=== PATIENT | female | born 1950 | race Caucasian/White ===

== ENCOUNTER 2021-09-30 11:49 | Outpatient (RCR) | payer MEDICARE, SELFPAY ==
--- OUTSIDE RECORDS SUMMARY | 2021-09-25 09:15 | XMS_ITS | Continuity of Care Document ---
:1950 Author Care Team Providers Name Role Phone MEAGAN ARELLANO Primary Care Physician MD Diallo Mayorga Attending Physician Chief Complaint and Reason for Visit Chief Complaint 03/12/21,Right Total Hip, Mue [facility] Reason for Visit Abdominal pain cramping Allergies, Adverse Reactions, Alerts Allergen Type Severity Reaction Last Verified Status Updated Lisinopril Allergy Unknown September 02, Yes Active 2021 Latex Allergy Severe SEVERE FACE September 02, Yes Active SWELLING 2021 Social History Smoking Status Status Start Date End Date Date of Observat ion Ex-smoker (finding) September 02 10:44am Observation Status Observation Response Date of Response History provided by Patient February 24, 2021 8:37am Where do you live? Own home/apt February 24, 2021 8:37am With whom do you live? Alone February 24 8:37am Comment on who patient lives just 3 weeks Novem jessy 2020 8:37am with ago Specify additional assistance family will stay with her Jevon mber 2020 8:37am needed as needed Additional Data Assigned Sex Female Problems Active Problems Medical Problem Onset Date Status Osteoarthros Nos-Pelvis February 01, 2011 Active Status post right hip replacement Active Medications Medication Status Dose Units Route Directions Qty Days Start End Ins tructions Date Date Acetaminophe Active 500-10 MG PO Every 6 100 Decembe n 00 Hours as r 10th, (Acetaminoph needed 2020 en Extra 11:49am Stren) 500 Mg TAB Albuterol Active 2 PUFF INH Every 4 1 Sulfate Hours as (Proair Hfa) needed for 90 Mcg/Puff Wheezing/Di INH fficult Breathing Albuterol/Ip Active 3 MG INH Every 6 ratropium Hours as (Duoneb) 3 needed Mg/0.5 Mg NEB Amoxicillin Active 2000 MG PO Once 4 August 1 HR WA IOR TO , DENTAL APPT 2021 10:36am Aspirin Active 1000 MG PO Daily as (Rajani needed Aspirin Extra Stren) 500 Mg TAB Beclomethaso Active 2 PUFF INH Twice A Day ne Dipropionate Hf (Qvar Redihaler) 40 Mcg/Act AER Carbamazepin Active 200 MG PO Daily e (Carbatrol) 200 Mg CAP Cetirizine Active 10 MG PO Daily Hcl Clonazepam Active 0.5 MG PO Bedtime Hctz/Losarta Active 1 TAB PO Daily 30 n Potassium (Hyzaar) 12.5 Mg/50 Mg TAB Hydroxyurea Active 500 MG PO Three Times A Day Ipratropium Active 2 PUFF INH Twice A Day [place] (Atrovent Hfa) 17 Mcg AER Metronidazol Active 1 DEO TOP Twice A Day e as needed (Metronidazo le Gel) 0.75 % GEL Simvastatin Active 20 MG PO Bedtime 30 Acetaminophe Disconti 1 TABLET PO Q4-6H Prn 60 November em FOR VICODIN n/Hydrocodon nued , 7.5/750 e Bitart 2006, (Vicodin 8:05am 2010 7.5/750) 7.5 1:43pm Mg/750 Mg TAB Albuterol Disconti 2 PUFF INH Q4h Prn 10 July (Ventolin nued , Hfa) 90 Mcg 2014 DOSE 9:16am Albuterol/Ip Disconti 2 PUFF INH Four Times January ch ratropium nued Daily , , (Combivent) 2010 2015 14.7 Gm AERO 12:46pm 1:29pm Amoxicillin Disconti 4 TABS PO Once 4 Decejune 4 t abs by [place] sethi , , mouth 1 hour 2010 2015 prior to 10:05am 1:29pm dental appointment Ascorbic Disconti 500 MG PO Daily June Acid nued , (Vitamin C) 2019 500 Mg TAB 2:24pm Aspirin Disconti 81 MG PO Twice A Day 60 30 Decembe Januar [place] r , y 2020, 11:49am 2021 9:24am Aspirin Disconti 81 MG PO Daily Februa (Baby nued ry Aspirin) 81 10th, Mg CHW 2020 11:14a m Beclomethaso Disconti 2 PUFF INH Twice A Day 1 Dece mb ne nued er Dipropionate 3rd, (Qvar) 80 2020 Mcg AER 2:43pm Cephalexin Disconti 2 GRAMS PO Once 4 June 4 tabs (2 nued 25th, 3rd, grams) by 2012 2019 mouth 1 hour 9:37am 2:24pm prior to dental appointment. Cephalexin Disconti 2 GRAMS PO Once 4 June nued er , 2017 2:06pm 8:39am Cephalexin Disconti 2 GRAMS PO Once 4 June 05 ta bs (2 nued er 1st, 22nd, grams) by 2015 2016 mouth 1 hour 3:33pm 3:39pm prior to dental appointment. Cephalexin Disconti 2 GRAMS PO Once 4 SeptemberJune 05 tabs (2 nued 23rd, 9th, grams) by 2013 2015 mouth 1 hour 4:16pm 1:29pm prior to dental appointment. Cephalexin Disconti 2 GRAMS PO Once 4 July 4 tabs (2 nued 3rd, 9th, grams) by 2014 2015 mouth 1 hour 3:25pm 1:29pm prior to dental appointment. Cephalexin Disconti 2 GRAMS PO Once 4 June 4 ta bs (2 nued er 9th, grams) by 2015 mouth 1 hour 2014 1:29pm prior to 3:14pm dental appointment. Cephalexin Disconti 2 GRAMS PO Once 4 June 05 ta bs (2 nued er 25th, grams) by 2012 mouth 1 hour 2011 9:37am prior to 2:56pm dental appointment. Cholecalcife Disconti 400 UNIT PO Daily June (Vitamin nued 3rd, D) 1,000 2019 Unit TAB 2:24pm Clonazepam Disconti 0.25 MG PO Daily September 9:26am Covid-19 Disconti 30 MCG IM Once 1 Decem (Sars-Cov-2) nued er 7th, jessy Mrna Vir 2020 7th, (Pfizer-Bion 3:25pm 2020 tech 3:28pm Covid-19) 30 Mcg/0.3 Ml INJ Ergocalcifer Disconti 87135 UNIT PO 09 June hany hly ol (Vitamin nued 9th, D) 50,000 2015 Unit CAP 1:29pm Ergocalcifer Disconti 46056 UNIT PO Once Weekly be ol (Vitamin nued r D) 50,000 , Unit CAP 2012 1:21pm Fluticasone Disconti 2 PUFF INH Twice A Day 1 Febrjun ch use with Propionate nued y 6th, , aerocham jessy (Flovent 2011 2016 as directed . Hfa) 110 Mcg 10:06am 3:40pm rins e mouth AER after use. Hydrocodone- Disconti 1 - 2 TAB PO Q4-6H Prn 60 January Acetaminophe nued , , n (Co-Gesic) 2010 2012 5 Mg/500 Mg 3:10pm 9:26am TAB Hydroxyurea Disconti 500 MG PO As Directed October b Take 3 capsules oral tuesday through tuesday; 2 capsules (Hydrea) 500 nued 6th, er SAT/TUE DAY. Mg CAP 2020 06, 11:12am 2020 2:43pm Hydroxyurea Disconti 500 MG PO As Directed Oct Take 3 (Hydrea) 500 nued y 10th, 6th, capsu les oral Mg CAP 2020 2020 daily. 11:33am 11:12a m Hydroxyurea Disconti 500 MG PO As Directed January alesia Take 3 (Hydrea) 500 nued 6th, ry capsule s Mon Mg CAP 2020 01, through Tue; 1:03pm 2020 AND 4 cap 11:33a sat/tuesday. m Hydroxyurea Disconti 500 MG PO As Directed June e Take 3 (Hydrea) 500 nued 3rd, r 6th, capsul es Mon Mg CAP 2019 2019 through Tue; 2:44pm 1:03pm AND 2 cap sat/tim. Hydroxyurea Disconti 500 MG PO Daily June 2 TAB S DAILY (Hydrea) 500 nued 3rd, Mg CAP 2019 2:44pm Hydroxyurea Disconti 500 MG PO Februa one tab (Hydrea) 500 nued ry TThSaSu and Mg CAP 6th, two tabs MWF 2017 10:06a m Hydroxyurea Disconti 500 MG PO Octobe (Hydrea) 500 nued r Mg CAP 2013 1:53pm Hydroxyurea Disconti 1000 MG PO As Directed Octob e (Hydrea) 500 nued r Mg CAP 2013 9:30am Losartan Disconti 50 MG PO Daily Octobe Potassium nued r 2010 9:26am Lyrica Disconti Octobe nued r 2010 9:26am Magnesium Disconti 250 MG PO Daily 100 June Oxide nued 2019 2:24pm Multiple Disconti 1 TAB PO As Needed Dece Vitamins W/ nued er Minerals , (Centrum 2020 Silver 2:43pm 50+Women) 1 Tab TAB Nicotine Disconti 21 MG TD Once November (Nicotine nued , jessy Transdermal 2006, ) 8:05am 2011 Mg/24 H DIS 1:43pm Oxycodone Disconti 2.5-5 MG PO Every 4-6 42 Decembe Aprua Minimize. Hcl nued Hours as r 10th, y Discontin ue needed 2020, as soon as 11:49am 2021 possible 9:24am Prednisone Disconti 0 PO Daily September take 3 tabs po daily days 1-2; then 2 tabs po daily days 3 - 5; then nued y , , 1 tab po michael y days 6 - 8. 2011 2012 10:06am 9:26am Pregabalin Disconti 100 MG PO Three Times September (Lyrica) 100 nued A Day , Mg CAP 2012 9:26am Probiotic Disconti 1 PO As Needed June Product nued , (Probiotic) 2019 TAB 2:24pm Rivaroxaban Disconti 10 MG PO Daily 4 4 Decembe Apruar Fo r DVT prophylaxis. Take this medication daily for 4 (Xarelto) 10 nued r 10th, y days, then aspirin 81 mg twice daily for 30 days. Mg TAB 2020, 11:49am 2021 9:24am Sennosides Disconti 2 TAB PO Twice A Day 100 Decembe Zurdo ar (Senna-Lax) nued as needed r 10th, y 8.6 Mg TAB 2020, 11:49am 2021 9:24am Warfarin Disconti 6 MG PO Daily January Sodium nued 2010 3:10pm 9:26am Immunizations Immunization Event Date Not Given Dose Rn Employee Health Lot Vac cine Reason Number Number Informatio n Statement (VIS) Deta il COVID-19 Pfizer May 05 PFIZER-BIO [id number] 2020 COVID-19 Pfizer June 10, PFIZER-BIONTECH [id number] 2020 COVID- Pfizer December 05 PFIZER-BIO [id number] 2020 Herpes Zoster October 30, 2009 Influenza February 09, 2002 Influenza January 28, 2 2004 Influenza January 12, 2005 Influenza January 24, 2006 Influenza February 04, 2007 Influenza March 09, 2008 Influenza January 22, 2009 Influenza January 20, 2010 Influenza February 10, 2011 Influenza January 28, 2012 Influenza January 022013 Influenza February 13, 2014 Influenza February 14, 2015 Influenza January 17, 2016 Influenza January 13, 2017 Influenza February 022018 Prevnar Adult February 02, 2013 Pneumovax Adult March 04, 2014 Shingrix August 30, 2018 Shingrix May [id number] Tetanus/Diptheri April 20, 1 a 2005 Tdap May 05 (adolescent/adul 2010 t) Tdap March 05 [id number] (adolescent/adul 2020 t) Medical Equipment Device Date Implanted Device Details PINNACLE GRIPTION March 13, 2021 SIMBA: [id number] Issuing Agency: [facility] Device Id: [id number] Expiration Date: 04-11-30 Lot Number: [id number] PINNACLE ALTRX March 13, 2021 SIMBA: [id number] Issuing Agency: [facility] Device Id: [id number] Expiration Date: 09-10-29 Lot Number: [id number] [id number] March 13, 2021 SIMBA: [id number] Issuing Agency: [facility] Device Id: [id number] Expiration Date: 04-12-29 Lot Number: [id number] BIOLOX DELTA March 13, 2021 SIMBA: [id number] Issuing Agency: [facility] Device Id: [id number] Expiration Date: 09-09-30 Lot Number: [id number] March 13, 2021 SIMBA: [id number] Issuing Agency: [facility] Device Id: [id number] Expiration Date: 04-13-30 Lot Number: [id number] Procedures Procedure Date Performed Status X-ray of right hip, single September 02, 2021 completed view Relevant Diagnostic Tests and/or Laboratory Data Laboratory Results Test Date/Time Result Interpretation Reference Result Comment Performing Range Site White Blood September 15, 2.50 5.00-10.00 [facility] Count 2021 [address] [facility] 10:25am [place] [address] Red Blood Count September 15, 1.55 3.90-5.03 [facility] 2021 [address] [facility] 10:25am [facility] [address] Hemoglobin September 15, 7.1 12.0-15.5 [facility] 2021 [address] [facility] 10:25am [place] [address] Hematocrit September 15, 20.7 34.9-44.5 [facility] 2021 [address] [facility] 10:25am [place] [address] Mean September 15, 134 82-98 [facility] Corpuscular 2021 [address] [facility] Volume 10:25am [place] [address] Mean September 15, 46 27-34 [facility] Corpuscular 2021 [address] [facility] Hemoglobin 10:25am [place] [address] Mean September 15, 34 32-36 [facility] Corpuscular 2021 [address] [facility] Hemoglobin 10:25am [place] [address] Concent Platelet Count September 15, 131 150-450 [facility] 2021 [address] [facility] 10:25am [place] [address] RDW Coefficient September 15, 14.2 11.5-15.3 [facility] of Variation 2021 [address] [facility] 10:25am [place] [address] Neutrophils (%) September 15, 44.8 50.0-70.0 [facility] (Auto) 2021 [address] [facility] 10:25am [place] [address] Lymphocytes (%) September 15, 47.2 25.0-45.0 [facility] (Auto) 2021 [address] [facility] 10:25am [place] [address] Monocytes (%) September 15, 5.6 0.00-11.0 [facility] (Auto) 2021 [address] [facility] 10:25am [place] [address] Eosinophils (%) September 15, 1.6 0.0-7.0 [facility] (Auto) 2021 [address] [facility] 10:25am [place] [address] Basophils (%) September 15, 0.8 0.0-3.0 [facility] (Auto) 2021 [address] [facility] 10:25am [place] [address] Immature September 15, 0.0 [facility] Granulocyte % 2021 [address] [facility] (Auto) 10:25am [facility] [address] RDW Coefficient December 11.9 11.5-15.3 [facility] of Variation 2020 [facility] 12:22pm [facility] [address] Neutrophils # September 15, 1.12 1.70-7.00 [facility] (Auto) 2021 [address] [facility] 10:25am [facility] [address] Lymphocytes # September 15, 1.18 0.90-2.90 [facility] (Auto) 2021 [address] [facility] 10:25am [facility] [address] Monocytes # September 15, 0.14 0.30-0.90 [facility] (Auto) 2021 [address] [facility] 10:25am [facility] [address] Eosinophils # September 15, 0.04 0.00-0.50 [facility] (Auto) 2021 [address] [facility] 10:25am [facility] [address] Basophils # September 15, 0.02 0.00-0.20 [facility] (Auto) 2021 [address] [facility] 10:25am [place] [address] Immature September 15, 0.00 [facility] Granulocyte # 2021 [address] [facility] (Auto) 10:25am [facility] [address] Random Glucose September 15, 99 60-115 [facility] 2021 [address] [facility] 10:25am [facility] [address] Blood Urea September 15 7-30 [facility] Nitrogen 2021 [address] [facility] 10:25am [place] [address] Creatinine September 15, 1.0 0.5-1.5 [facility] 2021 [address] [facility] 10:25am [place] [address] Estimated September 15, Patient [facility] Creatinine 2021 height/weight [address] [facility] Clearance 10:25am [place] [address] available Sodium Level September 15, 136 135-149 [facility] 2021 [address] [facility] 10:25am [place] [address] Potassium Level September 15, 4.5 3.6-5.1 [facility] 2021 [address] [facility] 10:25am [facility] [address] Chloride Level September 15, 99 96-114 [facility] 2021 [address] [facility] 10:25am [facility] [address] Carbon Dioxide September 15, 29 20-32 [facility] Level 2021 [address] [facility] 10:25am [facility] [address] Calcium Level September 15, 8.5 8.4-10.6 [facility] 2021 [address] [facility] 10:25am [facility] [address] Total Protein September 15, 6.7 6.0-8.3 The use of [facility] 2021 Eltrombopag, a [address] [facility] 10:25am bone [place] [address] stimulant used to treat thrombocytopenia and aplastic anemia, interferes with this measurement of total protein. A 5% bias has been observed. Albumin September 15, 3.9 3.3-5.0 [facility] 2021 [address] [facility] 10:25am [facility] [address] Total Bilirubin September 15, 0.2 0.1-1.5 [facility] 2021 [address] [facility] 10:25am [facility] [address] Aspartate Amino September 15 12-35 [facility] Transf 2021 [address] [facility] (AST/SGOT) 10:25am [place] [address] Alanine September 15, 14 4-35 [facility] Aminotransferas 2021 [address] [facility] e (ALT/SGPT) 10:25am [place] [address] Alkaline September 15, 103 40-150 [facility] Phosphatase [address] 10:25am [facility] [address] Lactate September 15, 554 346-767 [facility] Dehydrogenase 2021 [address] [facility] 10:25am [facility] [address] Vital Signs Vital Reading Result Reference Range Collection Date/ Time Height 63 [in_i] September 02, 2021 9 :57am Height 160.02 cm September 02, 2021 9 :57am Weight 199 [lb_av] September 02, 2021 9 :57am Weight 90.410714 kg September 02, 2021 9 :57am Body Temperature 98.3 [degF] September 02, 2021 9:57am Body Temperature 36.83 Estella September 02, 2021 9:57am Body surface area 1.93 m2 September 02, 2021 9:57am BMI (Body Mass Index) 35.3 kg/m2 September 02, 2021 9:57am Advance Directives Advance Directive Response Recorded Date/Time Does Pt have Health Care No September 14, 2012 8:50pm Directive? Has patient completed a No February 24 8:37am Health Care Directive? Insurance Providers Guarantor Maryuri Tello Address [address] [address] Contact Info. Home Phone: Payer Policy Id Coverage Id Subscriber's Subscriber Id Effective E xpiration Name Date Date [facility] [id number] Zimmerman, Medicare Diane C Plans Encounters Encounter Location(s) Arrival/Admit Date Discharge/Depart Date Provider(s) Registered [place] September 16, 2021 Koby Jane [facility] 6:54am Registered Clinics September 02, 2021 Anthony [facility] 10:00am A Office Visit Orthopedic September 02, 2021 Anthony May[facility] 10:00am A [place] Registered [place] September 02, 2021 Anthony Mayorga [facility] 9:42am A Recent Diagnosis Onset Date Status post right hip replacement Functional Status Observation Response Date Recorded Functional Status Independent March 15, 2021 1:18pm Mental Status Observation Response Date Recorded Cognitive Status Alert February 24, 2021 8:27am Oriented February 24, 2021 8:27am Assessments Diagnosis Onset Date Resolution Status Status post right hip replacement Plan of Treatment Instructions from visit on: 09/02/21 Please follow the provider's instructions as discussed during your visit. Future Tests Future scheduled test information is unavailable Pending Tests Pending diagnostic test information is unavailable Future Visits Future appointment information is unavailable Referrals to Other Providers Reason for Referral Start Provider Provider Contact Provider Address Referral Date Information Jerica Arellano Work Phone: [facility] DENG Perez PA-C [address] [place] [address] ON [facility] 5 2026 Future Procedures Future procedure information is unavailable Future Medications Future medication information is unavailable Patient Instructions Acetaminophen (By mouth) Aspirin (By mouth) Oxycodone, Rapid Release (By mouth) Rivaroxaban (By mouth) Senna (By mouth) Total Hip Replacement (DC) Goals Ambulatory Goals Reach or maintain optimal well being.
[2021-09-30 12:24] LABS: Slide Review Reflex No
[2021-09-30 12:27] LABS: Basophils Percent Auto 0.4 % (0.0-3.0); Eosinophils Percent Auto 1.3 % (0.0-7.0); Hematocrit 23.7 % (33.0-51.0); Lymphocytes Percent Auto 38.1 % (20-44); Mean Corpuscular HGB Conc 33 gm/dL (32-36); Mean Corpuscular Hemoglobin 43 pg (26-34); Mean Corpuscular Volume 130 fL (80-100); Monocytes Percent Auto 8.7 % (0.0-11.0); Neutrophils Percent Auto 51.5 % (42.0-72.0); Platelet Count* 453 K/uL (140-440); RDW Coefficient of Variation % 19.7 % (11.5-15.5); Red Blood Count 1.82 m/uL (4.00-5.20); White Blood Count* 2.31 K/uL (4.50-11.00)
[2021-09-30 13:07] LABS: Hemoglobin* 7.8 gm/dL (12.0-16.0)
== END 2021-10-01 23:59 | disposition home or self-care (01) ==
LOC: CCIC 11:49
PROVIDERS: PCP Physician Assistant Medical; Visit Provider Internal Medicine Hematology & Oncology
DX: D47.3 Essential (hemorrhagic) thrombocythemia (principal)
CPT/HCPCS: 36415; 85025

== ENCOUNTER 2021-10-21 10:26 | Outpatient (RCR) | payer MEDICARE, SELFPAY ==
[2021-10-21 10:48] LABS: Basophils Absolute Auto 0.04 K/uL (0.00-0.30); Basophils Percent Auto 0.9 % (0.0-3.0); Eosinophils Absolute Auto 0.09 K/uL (0.00-0.50); Hematocrit 28.1 % (33.0-51.0); Hemoglobin* 9.2 gm/dL (12.0-16.0); Immature Granulocytes Abs Auto 0.01 K/uL (0.00-0.30); Lymphocytes Absolute Auto 1.26 K/uL (0.90-2.90); Lymphocytes Percent Auto 27.6 % (20-44); Mean Corpuscular HGB Conc 33 gm/dL (32-36); Mean Corpuscular Hemoglobin 43 pg (26-34); Mean Corpuscular Volume 130 fL (80-100); Monocytes Percent Auto 9.4 % (0.0-11.0); Neutrophils Absolute Auto 2.74 K/uL (1.7-7.0); Neutrophils Percent Auto 59.9 % (42.0-72.0); Platelet Count* 321 K/uL (140-440); RDW Coefficient of Variation % 15.9 % (11.5-15.5); Red Blood Count 2.16 m/uL (4.00-5.20); White Blood Count* 4.57 K/uL (4.50-11.00)
[2021-10-21 10:49] LABS: Slide Review Reflex No
[2021-10-21 11:06] LABS: Albumin* 3.9 g/dL (3.3-5.0); Chloride* 101 mmol/L (96-114); Potassium* 4.6 mmol/L (3.6-5.1)
[2021-10-21 11:08] LABS: Bilirubin Total* 0.1 mg/dL (0.1-1.5); Creatinine* 1.1 mg/dL (0.5-1.5); Estimated Glomerular Filt Rate 53 ml/min
[2021-10-21 11:09] LABS: Alanine Aminotransferase* 13 U/L (4-35); Alkaline Phosphatase* 114 U/L (40-150); Aspartate Amino Transferase* 25 U/L (12-35); Blood Urea Nitrogen* 34 mg/dL (7-30); Carbon Dioxide* 27 mmol/L (20-32); Glucose* 105 mg/dL (60-115); Lactate Dehydrogenase* 531 U/L (313-618); Total Protein* 6.7 g/dL (6.0-8.3)
[2021-10-21 11:10] LABS: Calcium* 8.4 mg/dL (8.4-10.6)
[2021-10-30 20:50] LABS: Sodium* 135 mmol/L (135-149)
== END 2021-11-01 23:59 | disposition home or self-care (01) ==
LOC: CCIC 10:26
PROVIDERS: Visit Provider Internal Medicine Hematology & Oncology
DX: D47.3 Essential (hemorrhagic) thrombocythemia (principal)
CPT/HCPCS: 36415; 80053; 83615; 85025; 99212; 99214

== ENCOUNTER 2022-03-16 10:30 | Outpatient (RCR) | payer MEDICARE, SELFPAY ==
[2021-11-18 10:45] LABS: Basophils Absolute Auto 0.04 K/uL (0.00-0.30); Basophils Percent Auto 0.8 % (0.0-3.0); Eosinophils Absolute Auto 0.13 K/uL (0.00-0.50); Eosinophils Percent Auto 2.7 % (0.0-7.0); Hematocrit 33.7 % (33.0-51.0); Hemoglobin* 11.1 gm/dL (12.0-16.0); Immature Granulocytes Abs Auto 0.02 K/uL (0.00-0.30); Lymphocytes Absolute Auto 1.27 K/uL (0.90-2.90); Lymphocytes Percent Auto 26.5 % (20-44); Mean Corpuscular HGB Conc 33 gm/dL (32-36); Mean Corpuscular Hemoglobin 41 pg (26-34); Mean Corpuscular Volume 124 fL (80-100); Monocytes Percent Auto 8.8 % (0.0-11.0); Neutrophils Absolute Auto 2.92 K/uL (1.7-7.0); Neutrophils Percent Auto 60.8 % (42.0-72.0); Platelet Count* 419 K/uL (140-440); RDW Coefficient of Variation % 13.3 % (11.5-15.5); Red Blood Count 2.71 m/uL (4.00-5.20)
[2021-11-18 10:48] LABS: Slide Review Reflex No
[2021-11-18 10:58] LABS: Chloride* 99 mmol/L (96-114); Sodium* 134 mmol/L (135-149)
[2021-11-18 10:59] LABS: Potassium* 4.9 mmol/L (3.6-5.1)
[2021-11-18 11:01] LABS: Alanine Aminotransferase* 13 U/L (4-35); Alkaline Phosphatase* 118 U/L (40-150); Aspartate Amino Transferase* 26 U/L (12-35); Blood Urea Nitrogen* 33 mg/dL (7-30); Carbon Dioxide* 29 mmol/L (20-32); Creatinine* 0.9 mg/dL (0.5-1.5); Estimated Glomerular Filt Rate 68 ml/min; Glucose* 86 mg/dL (60-115); Lactate Dehydrogenase* 619 U/L (313-618); Total Protein* 7.5 g/dL (6.0-8.3)
[2021-11-18 11:02] LABS: Calcium* 8.6 mg/dL (8.4-10.6)
[2021-11-18 11:10] LABS: Bilirubin Total* < 0.1 mg/dL (0.1-1.5)
--- NOTE | 2021-11-19 12:24 | ONC.NURNOTE ---
Lab results called to Maryuri she continues on Hydrea 1000 mg M-F and 500mg Sa/Kaur taking iron- noted improved Hg discussed LDH elevation
[2021-12-16 10:26] LABS: Hemoglobin* 11.7 gm/dL (12.0-16.0); Lymphocytes Percent Auto 24.8 % (20-44); Mean Corpuscular HGB Conc 33 gm/dL (32-36); Mean Corpuscular Hemoglobin 40 pg (26-34); Mean Corpuscular Volume 120 fL (80-100); Neutrophils Percent Auto 63.4 % (42.0-72.0); Platelet Count* 421 K/uL (140-440); RDW Coefficient of Variation % 12.6 % (11.5-15.5); Red Blood Count 2.92 m/uL (4.00-5.20); White Blood Count* 4.67 K/uL (4.50-11.00)
[2021-12-16 10:27] LABS: Basophils Absolute Auto 0.05 K/uL (0.00-0.30); Basophils Percent Auto 1.1 % (0.0-3.0); Eosinophils Absolute Auto 0.12 K/uL (0.00-0.50); Eosinophils Percent Auto 2.6 % (0.0-7.0); Immature Granulocytes Abs Auto 0.02 K/uL (0.00-0.30); Lymphocytes Absolute Auto 1.16 K/uL (0.90-2.90); Monocytes Percent Auto 7.7 % (0.0-11.0); Neutrophils Absolute Auto 2.96 K/uL (1.7-7.0)
[2021-12-16 10:40] LABS: Slide Review Reflex No
[2021-12-16 10:43] LABS: Lactate Dehydrogenase* 557 U/L (313-618)
[2022-01-13 11:06] LABS: Basophils Absolute Auto 0.05 K/uL (0.00-0.30); Basophils Percent Auto 1.1 % (0.0-3.0); Eosinophils Absolute Auto 0.15 K/uL (0.00-0.50); Eosinophils Percent Auto 3.3 % (0.0-7.0); Hematocrit 35.6 % (33.0-51.0); Immature Granulocytes Abs Auto 0.02 K/uL (0.00-0.30); Lymphocytes Absolute Auto 1.29 K/uL (0.90-2.90); Lymphocytes Percent Auto 28.3 % (20-44); Mean Corpuscular HGB Conc 34 gm/dL (32-36); Mean Corpuscular Hemoglobin 39 pg (26-34); Mean Corpuscular Volume 117 fL (80-100); Monocytes Percent Auto 8.6 % (0.0-11.0); Neutrophils Absolute Auto 2.66 K/uL (1.7-7.0); Neutrophils Percent Auto 58.3 % (42.0-72.0); Platelet Count* 493 K/uL (140-440); RDW Coefficient of Variation % 12.6 % (11.5-15.5); Red Blood Count 3.05 m/uL (4.00-5.20); White Blood Count* 4.56 K/uL (4.50-11.00)
[2022-01-13 11:15] LABS: Slide Review Reflex No
[2022-01-13 11:24] LABS: Albumin* 4.2 g/dL (3.3-5.0)
[2022-01-13 11:25] LABS: Chloride* 100 mmol/L (96-114); Potassium* 4.4 mmol/L (3.6-5.1); Sodium* 136 mmol/L (135-149)
[2022-01-13 11:27] LABS: Aspartate Amino Transferase* 25 U/L (12-35); Bilirubin Total* < 0.1 mg/dL (0.1-1.5); Carbon Dioxide* 27 mmol/L (20-32); Estimated Glomerular Filt Rate 60 ml/min; Total Protein* 7.3 g/dL (6.0-8.3)
[2022-01-13 11:28] LABS: Alanine Aminotransferase* 13 U/L (4-35); Alkaline Phosphatase* 118 U/L (40-150); Blood Urea Nitrogen* 34 mg/dL (7-30); Calcium* 8.9 mg/dL (8.4-10.6); Glucose* 85 mg/dL (60-115)
[2022-03-16 10:37] LABS: Basophils Absolute Auto 0.05 K/uL (0.00-0.30); Basophils Percent Auto 1.1 % (0.0-3.0); Eosinophils Absolute Auto 0.15 K/uL (0.00-0.50); Eosinophils Percent Auto 3.3 % (0.0-7.0); Hematocrit 37.8 % (33.0-51.0); Hemoglobin* 12.8 gm/dL (12.0-16.0); Immature Granulocytes Abs Auto 0.01 K/uL (0.00-0.30); Immature Granulocytes Pct Auto 0.2 %; Lymphocytes Absolute Auto 1.17 K/uL (0.90-2.90); Lymphocytes Percent Auto 25.6 % (20-44); Mean Corpuscular HGB Conc 34 gm/dL (32-36); Mean Corpuscular Hemoglobin 39 pg (26-34); Mean Corpuscular Volume 115 fL (80-100); Monocytes Percent Auto 7.4 % (0.0-11.0); Neutrophils Absolute Auto 2.85 K/uL (1.7-7.0); Neutrophils Percent Auto 62.4 % (42.0-72.0); Platelet Count* 407 K/uL (140-440); Red Blood Count 3.29 m/uL (4.00-5.20); Slide Review Reflex No; White Blood Count* 4.57 K/uL (4.50-11.00)
[2022-03-16 10:49] LABS: Chloride* 100 mmol/L (96-114)
[2022-03-16 10:50] LABS: Albumin* 4.2 g/dL (3.3-5.0); Potassium* 4.3 mmol/L (3.6-5.1); Sodium* 136 mmol/L (135-149)
[2022-03-16 10:52] LABS: Bilirubin Total* 0.2 mg/dL (0.1-1.5); Carbon Dioxide* 27 mmol/L (20-32); Estimated Glomerular Filt Rate 60 ml/min
[2022-03-16 10:53] LABS: Alanine Aminotransferase* 18 U/L (4-35); Alkaline Phosphatase* 112 U/L (40-150); Aspartate Amino Transferase* 25 U/L (12-35); Blood Urea Nitrogen* 30 mg/dL (7-30); Calcium* 8.6 mg/dL (8.4-10.6); Glucose* 108 mg/dL (60-115); Total Protein* 7.3 g/dL (6.0-8.3)
[2022-03-16 16:06] LABS: Lactate Dehydrogenase* 297 U/L (120-246)
--- NOTE | 2022-03-17 13:58 | ONC.NURNOTE ---
Addendum entered by Rosemary Sigala RN 03/17/22 14:21: noted Hg improvement patient states she has been taking a MVI w/Iron Original Note: lab results reviewed by Dr Jane and called to Maryuri labs reported as stable continue same hydrea dose 500 mg M-F and 1000 mg Sa Kaur next lab due 05/25/22
--- NOTE | 2022-05-17 11:58 | PC.NURSE ---
Pt did not arrive for her lab appointment today. RN attempted to call Maryuri with no answer and no VM set up. Unable to LM. Pt is scheduled for labs and provider visit in June,. Will also update QIAN Rileyorder dispatcher.
== END 2022-05-17 23:59 | disposition home or self-care (01) ==
LOC: CCIC 10:30
PROVIDERS: PCP Internal Medicine Hematology & Oncology; Referring Provider Internal Medicine Hematology & Oncology; Visit Provider Internal Medicine Hematology & Oncology
DX: D47.3 Essential (hemorrhagic) thrombocythemia (principal)
CPT/HCPCS: 36415; 80053; 83615; 85025; 99212; 99213; 99214

== ENCOUNTER 2022-07-08 11:31 | Outpatient (REF) | payer MEDICARE, SELFPAY ==
[2022-07-08 14:18] LABS: Chloride* 101 mmol/L (96-114); Potassium* 4.5 mmol/L (3.6-5.1); Sodium* 138 mmol/L (135-149)
[2022-07-08 14:20] LABS: Cholesterol* 187 mg/dL (90-199)
[2022-07-08 14:21] LABS: Blood Urea Nitrogen* 29 mg/dL (7-30); Carbon Dioxide* 35 mmol/L (20-32); Estimated Glomerular Filt Rate 60 ml/min; Glucose* 74 mg/dL (60-115); Triglycerides* 66 mg/dL (40-149)
[2022-07-08 14:22] LABS: Calcium* 9.1 mg/dL (8.4-10.6); HDL Cholesterol* 76 mg/dL (>=50); LDL Cholesterol Calculated 98 mg/dL (<100)
[2022-07-08 14:34] LABS: Basophils Absolute Auto 0.12 K/uL (0.00-0.30); Basophils Percent Auto 1.5 % (0.0-3.0); Eosinophils Absolute Auto 0.34 K/uL (0.00-0.50); Eosinophils Percent Auto 4.3 % (0.0-7.0); Hematocrit 41.7 % (33.0-51.0); Hemoglobin* 13.6 gm/dL (12.0-16.0); Immature Granulocytes Abs Auto 0.03 K/uL (0.00-0.30); Immature Granulocytes Pct Auto 0.4 %; Lymphocytes Percent Auto 19.4 % (20-44); Mean Corpuscular HGB Conc 33 gm/dL (32-36); Mean Corpuscular Hemoglobin 37 pg (26-34); Mean Corpuscular Volume 113 fL (80-100); Monocytes Percent Auto 6.8 % (0.0-11.0); Neutrophils Absolute Auto 5.29 K/uL (1.7-7.0); Neutrophils Percent Auto 67.6 % (42.0-72.0); Platelet Count* 795 K/uL (140-440); RDW Coefficient of Variation % 13.4 % (11.5-15.5); Red Blood Count 3.68 m/uL (4.00-5.20); White Blood Count* 7.83 K/uL (4.50-11.00)
[2022-07-08 14:36] LABS: Slide Review Acceptable Review (Acceptable); Slide Review Reflex Yes
[2022-07-08 15:05] LABS: Vitamin B12* 691 pg/mL (243-894)
== END 2022-07-08 11:32 | disposition home or self-care (01) ==
LOC: NPINS 11:31
PROVIDERS: PCP Physician Assistant Medical; Visit Provider Physician Assistant Medical
DX: I10 Essential (primary) hypertension (principal); G50.0 Trigeminal neuralgia; Z13.6 Encounter for screening for cardiovascular disorders
CPT/HCPCS: 80048; 80061; 80156; 82607; 85025

== ENCOUNTER 2022-12-16 10:15 | Outpatient (RCR) | payer MEDICARE, SELFPAY ==
[2022-06-22 10:53] LABS: Basophils Absolute Auto 0.09 K/uL (0.00-0.30); Basophils Percent Auto 1.1 % (0.0-3.0); Eosinophils Absolute Auto 0.54 K/uL (0.00-0.50); Eosinophils Percent Auto 6.7 % (0.0-7.0); Hemoglobin* 12.8 gm/dL (12.0-16.0); Immature Granulocytes Pct Auto 1.2 %; Lymphocytes Percent Auto 17.8 % (20-44); Mean Corpuscular HGB Conc 33 gm/dL (32-36); Mean Corpuscular Hemoglobin 37 pg (26-34); Mean Corpuscular Volume 113 fL (80-100); Monocytes Percent Auto 7.5 % (0.0-11.0); Neutrophils Absolute Auto 5.32 K/uL (1.7-7.0); Neutrophils Percent Auto 65.7 % (42.0-72.0); Platelet Count* 848 K/uL (140-440); RDW Coefficient of Variation % 13.1 % (11.5-15.5); Red Blood Count 3.45 m/uL (4.00-5.20)
[2022-06-22 10:56] LABS: Slide Review Reflex No
[2022-06-22 10:58] LABS: Chloride* 104 mmol/L (96-114)
[2022-06-22 10:59] LABS: Albumin* 3.9 g/dL (3.3-5.0); Potassium* 4.1 mmol/L (3.6-5.1); Sodium* 137 mmol/L (135-149)
[2022-06-22 11:01] LABS: Creatinine* 0.9 mg/dL (0.5-1.5); Estimated Glomerular Filt Rate 68 ml/min
[2022-06-22 11:02] LABS: Alanine Aminotransferase* 19 U/L (4-35); Alkaline Phosphatase* 108 U/L (40-150); Aspartate Amino Transferase* 30 U/L (12-35); Bilirubin Total* 0.3 mg/dL (0.1-1.5); Blood Urea Nitrogen* 25 mg/dL (7-30); Calcium* 8.9 mg/dL (8.4-10.6); Carbon Dioxide* 30 mmol/L (20-32); Glucose* 112 mg/dL (60-115); Lactate Dehydrogenase* 220 U/L (120-246); Total Protein* 7.1 g/dL (6.0-8.3)
[2022-07-08 10:58] LABS: Platelet Count* 734 K/uL (140-440)
[2022-07-22 10:53] LABS: Basophils Absolute Auto 0.09 K/uL (0.00-0.30); Basophils Percent Auto 1.2 % (0.0-3.0); Eosinophils Percent Auto 5.2 % (0.0-7.0); Hematocrit 39.7 % (33.0-51.0); Hemoglobin* 13.2 gm/dL (12.0-16.0); Immature Granulocytes Abs Auto 0.03 K/uL (0.00-0.30); Immature Granulocytes Pct Auto 0.4 %; Lymphocytes Absolute Auto 1.69 K/uL (0.90-2.90); Lymphocytes Percent Auto 21.9 % (20-44); Mean Corpuscular HGB Conc 33 gm/dL (32-36); Mean Corpuscular Hemoglobin 38 pg (26-34); Mean Corpuscular Volume 114 fL (80-100); Monocytes Percent Auto 6.7 % (0.0-11.0); Neutrophils Percent Auto 64.6 % (42.0-72.0); Platelet Count* 850 K/uL (140-440); RDW Coefficient of Variation % 13.8 % (11.5-15.5); Red Blood Count 3.49 m/uL (4.00-5.20); White Blood Count* 7.73 K/uL (4.50-11.00)
[2022-07-22 10:54] LABS: Slide Review Reflex No
--- NOTE | 2022-07-22 15:05 | ONC.NURNOTE ---
Lab results reviewed and Dr Jane dose change called to Maryuri- states understanding to increase hydrea to 1500 mg (3 tabs) three times a week- she will take MWF next lab appt set in 2 weeks pt informed that if platelets continue to rise with dose increase then Dr Jane is considering a BM for evaluation
[2022-08-05 09:54] LABS: Basophils Absolute Auto 0.09 K/uL (0.00-0.30); Basophils Percent Auto 1.7 % (0.0-3.0); Eosinophils Absolute Auto 0.24 K/uL (0.00-0.50); Eosinophils Percent Auto 4.4 % (0.0-7.0); Hematocrit 38.6 % (33.0-51.0); Hemoglobin* 12.7 gm/dL (12.0-16.0); Immature Granulocytes Abs Auto 0.02 K/uL (0.00-0.30); Immature Granulocytes Pct Auto 0.4 %; Lymphocytes Absolute Auto 1.42 K/uL (0.90-2.90); Lymphocytes Percent Auto 26.1 % (20-44); Mean Corpuscular HGB Conc 33 gm/dL (32-36); Mean Corpuscular Hemoglobin 38 pg (26-34); Mean Corpuscular Volume 114 fL (80-100); Monocytes Percent Auto 5.9 % (0.0-11.0); Neutrophils Absolute Auto 3.36 K/uL (1.7-7.0); Neutrophils Percent Auto 61.5 % (42.0-72.0); Platelet Count* 515 K/uL (140-440); RDW Coefficient of Variation % 13.9 % (11.5-15.5); Red Blood Count 3.39 m/uL (4.00-5.20); White Blood Count* 5.45 K/uL (4.50-11.00)
[2022-08-05 10:04] LABS: Slide Review Reflex Yes
[2022-08-05 10:05] LABS: Slide Review Acceptable Review (Acceptable)
[2022-08-31 10:19] LABS: Basophils Percent Auto 1.3 % (0.0-3.0); Eosinophils Percent Auto 3.8 % (0.0-7.0); Hematocrit 35.8 % (33.0-51.0); Hemoglobin* 12.1 gm/dL (12.0-16.0); Immature Granulocytes Pct Auto 0.2 %; Lymphocytes Percent Auto 31.3 % (20-44); Mean Corpuscular HGB Conc 34 gm/dL (32-36); Mean Corpuscular Hemoglobin 39 pg (26-34); Mean Corpuscular Volume 114 fL (80-100); Monocytes Percent Auto 6.7 % (0.0-11.0); Neutrophils Percent Auto 56.7 % (42.0-72.0); Platelet Count* 525 K/uL (140-440); Red Blood Count 3.14 m/uL (4.00-5.20); White Blood Count* 4.48 K/uL (4.50-11.00)
[2022-08-31 10:20] LABS: Slide Review Reflex No
[2022-09-28 10:48] LABS: Basophils Absolute Auto 0.04 K/uL (0.00-0.30); Basophils Percent Auto 0.8 % (0.0-3.0); Eosinophils Absolute Auto 0.11 K/uL (0.00-0.50); Eosinophils Percent Auto 2.2 % (0.0-7.0); Hematocrit 36.9 % (33.0-51.0); Hemoglobin* 12.7 gm/dL (12.0-16.0); Immature Granulocytes Abs Auto 0.01 K/uL (0.00-0.30); Immature Granulocytes Pct Auto 0.2 %; Lymphocytes Absolute Auto 1.59 K/uL (0.90-2.90); Lymphocytes Percent Auto 32.3 % (20-44); Mean Corpuscular HGB Conc 34 gm/dL (32-36); Mean Corpuscular Hemoglobin 40 pg (26-34); Mean Corpuscular Volume 115 fL (80-100); Monocytes Percent Auto 6.7 % (0.0-11.0); Neutrophils Absolute Auto 2.84 K/uL (1.7-7.0); Neutrophils Percent Auto 57.8 % (42.0-72.0); Platelet Count* 600 K/uL (140-440); White Blood Count* 4.92 K/uL (4.50-11.00)
[2022-09-28 10:56] LABS: Slide Review Reflex No
[2022-10-25 13:28] LABS: Basophils Absolute Auto 0.04 K/uL (0.00-0.30); Basophils Percent Auto 0.9 % (0.0-3.0); Eosinophils Percent Auto 2.2 % (0.0-7.0); Hematocrit 32.3 % (33.0-51.0); Immature Granulocytes Abs Auto 0.01 K/uL (0.00-0.30); Immature Granulocytes Pct Auto 0.2 %; Lymphocytes Absolute Auto 1.26 K/uL (0.90-2.90); Mean Corpuscular HGB Conc 34 gm/dL (32-36); Mean Corpuscular Hemoglobin 41 pg (26-34); Mean Corpuscular Volume 120 fL (80-100); Neutrophils Absolute Auto 2.82 K/uL (1.7-7.0); Neutrophils Percent Auto 62.7 % (42.0-72.0); Platelet Count* 551 K/uL (140-440); RDW Coefficient of Variation % 14.8 % (11.5-15.5); Red Blood Count 2.69 m/uL (4.00-5.20)
[2022-10-25 13:30] LABS: Slide Review Reflex No
[2022-10-25 13:48] LABS: Albumin* 4.2 g/dL (3.3-5.0); Chloride* 101 mmol/L (96-114); Sodium* 138 mmol/L (135-149)
[2022-10-25 13:51] LABS: Alanine Aminotransferase* 21 U/L (4-35); Alkaline Phosphatase* 85 U/L (40-150); Aspartate Amino Transferase* 29 U/L (12-35); Bilirubin Total* 0.1 mg/dL (0.1-1.5); Blood Urea Nitrogen* 24 mg/dL (7-30); Carbon Dioxide* 26 mmol/L (20-32); Estimated Glomerular Filt Rate 59 ml/min; Glucose* 85 mg/dL (60-115); Lactate Dehydrogenase* 188 U/L (120-246); Total Protein* 7.3 g/dL (6.0-8.3)
[2022-11-22 11:28] LABS: Basophils Percent Auto 1.4 % (0.0-3.0); Eosinophils Percent Auto 3.8 % (0.0-7.0); Hematocrit 30.8 % (33.0-51.0); Hemoglobin* 10.6 gm/dL (12.0-16.0); Immature Granulocytes Pct Auto 0.3 %; Lymphocytes Percent Auto 28.5 % (20-44); Mean Corpuscular HGB Conc 34 gm/dL (32-36); Mean Corpuscular Hemoglobin 43 pg (26-34); Mean Corpuscular Volume 124 fL (80-100); Monocytes Percent Auto 7.6 % (0.0-11.0); Neutrophils Percent Auto 58.4 % (42.0-72.0); Platelet Count* 571 K/uL (140-440); RDW Coefficient of Variation % 15.1 % (11.5-15.5); Red Blood Count 2.48 m/uL (4.00-5.20); White Blood Count* 2.91 K/uL (4.50-11.00)
[2022-11-22 11:31] LABS: Slide Review Reflex No
--- NOTE | 2022-11-22 14:10 | ONC.NURNOTE ---
Lab results noted and called to Maryuri- she has not missed any doses to continue same dose until results reviewed by Med Onc on 1500mg 6d/wk and 1000mg 1d/wk
[2022-12-09 11:04] LABS: Basophils Percent Auto 0.7 % (0.0-3.0); Eosinophils Percent Auto 1.7 % (0.0-7.0); Hematocrit 30.4 % (33.0-51.0); Hemoglobin* 10.4 gm/dL (12.0-16.0); Lymphocytes Percent Auto 33.1 % (20-44); Mean Corpuscular HGB Conc 34 gm/dL (32-36); Mean Corpuscular Hemoglobin 42 pg (26-34); Mean Corpuscular Volume 124 fL (80-100); Monocytes Percent Auto 8.4 % (0.0-11.0); Neutrophils Percent Auto 56.1 % (42.0-72.0); Platelet Count* 210 K/uL (140-440); RDW Coefficient of Variation % 14.4 % (11.5-15.5); Red Blood Count 2.45 m/uL (4.00-5.20); White Blood Count* 2.87 K/uL (4.50-11.00)
[2022-12-09 11:06] LABS: Slide Review Reflex No
--- NOTE | 2022-12-10 10:55 | ONC.NURNOTE ---
Lab results noted and reviewed with Day Amezcua APRN DRIVER LICENSE EXAMINER noted platelet change, WBC/ANC patient was called with dose change hold doses Tuesday, Tue and Tuesday- she took today's dose restart on Tuesday with 1000mg and then plan to continue with 1500mg 4d/wk and 1000mg 3d/wk Lab recheck in 1 week Maryuri correctly stated new dose and plan for repeat lab in 1 week
[2022-12-16 11:02] LABS: Eosinophils Percent Auto 2.7 % (0.0-7.0); Hematocrit 29.5 % (33.0-51.0); Hemoglobin* 10.1 gm/dL (12.0-16.0); Immature Granulocytes Pct Auto 0.3 %; Lymphocytes Percent Auto 28.6 % (20-44); Mean Corpuscular HGB Conc 34 gm/dL (32-36); Mean Corpuscular Hemoglobin 42 pg (26-34); Mean Corpuscular Volume 123 fL (80-100); Neutrophils Percent Auto 59.4 % (42.0-72.0); Platelet Count* 585 K/uL (140-440); RDW Coefficient of Variation % 14.2 % (11.5-15.5); Red Blood Count 2.39 m/uL (4.00-5.20); White Blood Count* 3.01 K/uL (4.50-11.00)
[2022-12-16 11:08] LABS: Slide Review Reflex No
== END 2022-12-19 23:59 | disposition home or self-care (01) ==
LOC: CCIC 10:15
PROVIDERS: Clinical Nurse Specialist; Internal Medicine Hematology & Oncology; PCP Physician Assistant Medical; Referring Provider Physician Assistant Medical; Visit Provider Internal Medicine Hematology & Oncology
DX: D47.3 Essential (hemorrhagic) thrombocythemia (principal)
CPT/HCPCS: 36415; 80053; 83615; 85025; 85049; 99212; 99213; 99214

== ENCOUNTER 2023-05-09 12:15 | Outpatient (RCR) | payer MEDICARE, SELFPAY ==
[2022-12-23 11:33] LABS: Basophils Percent Auto 0.6 % (0.0-3.0); Eosinophils Percent Auto 2.7 % (0.0-7.0); Hematocrit 29.6 % (33.0-51.0); Hemoglobin* 10.3 gm/dL (12.0-16.0); Immature Granulocytes Pct Auto 0.3 %; Mean Corpuscular HGB Conc 35 gm/dL (32-36); Mean Corpuscular Hemoglobin 42 pg (26-34); Mean Corpuscular Volume 121 fL (80-100); Monocytes Percent Auto 8.6 % (0.0-11.0); Neutrophils Percent Auto 57.8 % (42.0-72.0); Platelet Count* 649 K/uL (140-440); RDW Coefficient of Variation % 13.3 % (11.5-15.5); Red Blood Count 2.44 m/uL (4.00-5.20); White Blood Count* 3.37 K/uL (4.50-11.00)
[2022-12-23 11:40] LABS: Slide Review Reflex No
--- NOTE | 2022-12-23 14:31 | ONC.NURNOTE ---
Plt results left message on VM- Dr Jane to review on Tuesday
--- NOTE | 2022-12-24 12:07 | ONC.NURNOTE ---
Labs noted and reviewed by Day Amezcua APRN dose adjusted to to 1500mg 5d/wk and 1000 mg 2d/wk with labs in 10-12 days Maryuri is leaving for [place] tomorrow for a week
[2023-01-05 10:19] LABS: Basophils Percent Auto 0.8 % (0.0-3.0); Eosinophils Percent Auto 2.3 % (0.0-7.0); Hematocrit 27.2 % (33.0-51.0); Hemoglobin* 9.4 gm/dL (12.0-16.0); Immature Granulocytes Pct Auto 0.3 %; Lymphocytes Percent Auto 26.4 % (20-44); Mean Corpuscular HGB Conc 35 gm/dL (32-36); Mean Corpuscular Hemoglobin 44 pg (26-34); Mean Corpuscular Volume 127 fL (80-100); Monocytes Percent Auto 7.3 % (0.0-11.0); Neutrophils Percent Auto 62.9 % (42.0-72.0); Platelet Count* 277 K/uL (140-440); RDW Coefficient of Variation % 13.8 % (11.5-15.5); Red Blood Count 2.15 m/uL (4.00-5.20); White Blood Count* 3.83 K/uL (4.50-11.00)
[2023-01-05 10:44] LABS: Slide Review Reflex No
--- NOTE | 2023-01-05 13:37 | ONC.NURNOTE ---
Lab results reviewed by Dr myers and called to Maryuri reports more SOB and fatigue taking iron dose adjusted- and reviewed with Maryuri- alternating 1000 with 1500 mg every other day lab set up for a month discussed symptoms of worsening anemia and to call with more fatigue and SOB- will check a CBC if needed earlier Maryuri states understanding
[2023-02-02 10:51] LABS: Eosinophils Percent Auto 2.8 % (0.0-7.0); Hematocrit 31.6 % (33.0-51.0); Hemoglobin* 10.7 gm/dL (12.0-16.0); Immature Granulocytes Pct Auto 0.3 %; Lymphocytes Percent Auto 24.9 % (20-44); Mean Corpuscular HGB Conc 34 gm/dL (32-36); Mean Corpuscular Hemoglobin 43 pg (26-34); Mean Corpuscular Volume 126 fL (80-100); Monocytes Percent Auto 6.2 % (0.0-11.0); Neutrophils Percent Auto 64.8 % (42.0-72.0); Platelet Count* 276 K/uL (140-440); RDW Coefficient of Variation % 12.7 % (11.5-15.5); Red Blood Count 2.51 m/uL (4.00-5.20); White Blood Count* 3.86 K/uL (4.50-11.00)
[2023-02-02 11:06] LABS: Slide Review Reflex No
--- NOTE | 2023-02-02 16:57 | ONC.NURNOTE ---
Lab results reviewed by Dr Jane and called to Maryuri to continue same dose with 1500mg alternating with 1000mg labs in a month and RTC and lab in 2 months appts made patient reports increase in fatigue- Hg has improved
[2023-03-09 10:48] LABS: Basophils Percent Auto 0.7 % (0.0-3.0); Eosinophils Percent Auto 2.3 % (0.0-7.0); Hematocrit 32.6 % (33.0-51.0); Hemoglobin* 10.8 gm/dL (12.0-16.0); Immature Granulocytes Pct Auto 0.5 %; Lymphocytes Percent Auto 29.2 % (20-44); Mean Corpuscular HGB Conc 33 gm/dL (32-36); Mean Corpuscular Hemoglobin 42 pg (26-34); Mean Corpuscular Volume 128 fL (80-100); Monocytes Percent Auto 7.4 % (0.0-11.0); Neutrophils Percent Auto 59.9 % (42.0-72.0); Platelet Count* 281 K/uL (140-440); RDW Coefficient of Variation % 12.7 % (11.5-15.5); Red Blood Count 2.55 m/uL (4.00-5.20); White Blood Count* 4.32 K/uL (4.50-11.00)
[2023-03-09 10:53] LABS: Slide Review Reflex No
--- NOTE | 2023-03-09 11:10 | ONC.NURNOTE ---
Labs reviewed with Maryuri over the phone all stable and Hg continues to improve next appts reviewed dose confirmed alternating 1000mg with 1500mg every other day reports improved energy
--- NOTE | 2023-03-23 10:16 | ONC.NURNOTE ---
Patient called to reschedule her appts- she has a travel opportunity for April lab rescheduled for next week and RTC postponed until May with CBC CMP same day
[2023-03-30 11:32] LABS: Basophils Absolute Auto 0.03 K/uL (0.00-0.30); Basophils Percent Auto 0.7 % (0.0-3.0); Eosinophils Absolute Auto 0.06 K/uL (0.00-0.50); Eosinophils Percent Auto 1.3 % (0.0-7.0); Hematocrit 33.9 % (33.0-51.0); Hemoglobin* 11.4 gm/dL (12.0-16.0); Immature Granulocytes Abs Auto 0.01 K/uL (0.00-0.30); Immature Granulocytes Pct Auto 0.2 %; Lymphocytes Percent Auto 18.6 % (20-44); Mean Corpuscular HGB Conc 34 gm/dL (32-36); Mean Corpuscular Hemoglobin 42 pg (26-34); Mean Corpuscular Volume 126 fL (80-100); Monocytes Percent Auto 6.1 % (0.0-11.0); Neutrophils Percent Auto 73.1 % (42.0-72.0); Platelet Count* 293 K/uL (140-440); RDW Coefficient of Variation % 12.3 % (11.5-15.5); Red Blood Count 2.69 m/uL (4.00-5.20); White Blood Count* 4.58 K/uL (4.50-11.00)
[2023-03-30 12:03] LABS: Slide Review Reflex No
--- NOTE | 2023-03-31 10:46 | ONC.NURNOTE ---
results called to Maryuri as stable she is taking hydrea alternating 1000 mg/ [address] Jane to review next week patient leaving on vacation this week next appts scheduled for May
[2023-05-09 12:54] LABS: Basophils Absolute Auto 0.04 K/uL (0.00-0.30); Basophils Percent Auto 0.8 % (0.0-3.0); Eosinophils Absolute Auto 0.21 K/uL (0.00-0.50); Eosinophils Percent Auto 4.2 % (0.0-7.0); Hemoglobin* 11.3 gm/dL (12.0-16.0); Immature Granulocytes Abs Auto 0.02 K/uL (0.00-0.30); Immature Granulocytes Pct Auto 0.4 %; Lymphocytes Percent Auto 28.3 % (20-44); Mean Corpuscular HGB Conc 33 gm/dL (32-36); Mean Corpuscular Hemoglobin 41 pg (26-34); Mean Corpuscular Volume 125 fL (80-100); Monocytes Percent Auto 6.9 % (0.0-11.0); Neutrophils Absolute Auto 2.94 K/uL (1.7-7.0); Neutrophils Percent Auto 59.4 % (42.0-72.0); Platelet Count* 310 K/uL (140-440); RDW Coefficient of Variation % 13.1 % (11.5-15.5); Red Blood Count 2.73 m/uL (4.00-5.20); White Blood Count* 4.95 K/uL (4.50-11.00)
[2023-05-09 12:56] LABS: Slide Review Reflex No
[2023-05-09 13:08] LABS: Albumin* 4.1 g/dL (3.3-5.0); Chloride* 100 mmol/L (96-114); Potassium* 4.6 mmol/L (3.6-5.1); Sodium* 138 mmol/L (135-149)
[2023-05-09 13:11] LABS: Alanine Aminotransferase* 15 U/L (4-35); Alkaline Phosphatase* 124 U/L (40-150); Anion Gap 10 mEq/L (7-15); Aspartate Amino Transferase* 27 U/L (12-35); Bilirubin Total* 0.1 mg/dL (0.1-1.5); Blood Urea Nitrogen* 24 mg/dL (7-30); Carbon Dioxide* 28 mmol/L (20-32); Creatinine* 0.9 mg/dL (0.5-1.5); Estimated Glomerular Filt Rate 68 ml/min; Glucose* 73 mg/dL (60-115); Total Protein* 7.4 g/dL (6.0-8.3)
== END 2023-06-21 23:59 | disposition home or self-care (01) ==
LOC: CCIC 12:15
PROVIDERS: Clinical Nurse Specialist; Internal Medicine Hematology & Oncology; PCP Physician Assistant Medical; Referring Provider Physician Assistant Medical; Visit Provider Internal Medicine Hematology & Oncology
DX: D47.3 Essential (hemorrhagic) thrombocythemia (principal); Z79.82 Long term (current) use of aspirin
CPT/HCPCS: 36415; 80053; 85025; 99213; 99214; G0463

== ENCOUNTER 2024-01-11 10:30 | Outpatient (RCR) | payer MEDICARE, SELFPAY ==
[2023-08-03 10:49] VITALS: BP 118/71; PULSE 94; RESP 16; TEMP 36.6; O2SAT 92
[2023-08-03 11:09] LABS: Basophils Percent Auto 0.8 % (0.0-3.0); Eosinophils Percent Auto 2.8 % (0.0-7.0); Hematocrit 33.3 % (33.0-51.0); Hemoglobin* 11.2 gm/dL (12.0-16.0); Immature Granulocytes Pct Auto 0.3 %; Lymphocytes Percent Auto 25.3 % (20-44); Mean Corpuscular HGB Conc 34 gm/dL (32-36); Mean Corpuscular Hemoglobin 42 pg (26-34); Mean Corpuscular Volume 123 fL (80-100); Monocytes Percent Auto 8.8 % (0.0-11.0); Platelet Count* 290 K/uL (140-440)
[2023-08-03 11:16] LABS: Slide Review Reflex No
[2023-08-03 11:31] LABS: Albumin* 4.1 g/dL (3.3-5.0); Chloride* 101 mmol/L (96-114); Potassium* 4.1 mmol/L (3.6-5.1); Sodium* 136 mmol/L (135-149)
[2023-08-03 11:33] LABS: Creatinine* 0.9 mg/dL (0.5-1.5); Estimated Glomerular Filt Rate 68 ml/min
[2023-08-03 11:34] LABS: Alanine Aminotransferase* 14 U/L (4-35); Alkaline Phosphatase* 112 U/L (40-150); Anion Gap 5 mEq/L (7-15); Aspartate Amino Transferase* 27 U/L (12-35); Blood Urea Nitrogen* 27 mg/dL (7-30); Carbon Dioxide* 30 mmol/L (20-32); Glucose* 95 mg/dL (60-115); Lactate Dehydrogenase* 200 U/L (120-246); Total Protein* 7.2 g/dL (6.0-8.3)
[2023-08-03 11:38] LABS: Bilirubin Total* < 0.1 mg/dL (0.1-1.5)
--- NOTE | 2023-08-03 15:26 | ONC.NURNOTE ---
Lab results reviewed by Dr Jane and called to Maryuri stable with no dose change in hydrea 1000mg/alternating with 1500 mg next appts in 3 mths set up
[2023-11-09 13:03] LABS: Basophils Absolute Auto 0.04 K/uL (0.00-0.30); Basophils Percent Auto 0.8 % (0.0-3.0); Eosinophils Absolute Auto 0.08 K/uL (0.00-0.50); Eosinophils Percent Auto 1.7 % (0.0-7.0); Hematocrit 33.4 % (33.0-51.0); Immature Granulocytes Abs Auto 0.01 K/uL (0.00-0.30); Immature Granulocytes Pct Auto 0.2 %; Lymphocytes Absolute Auto 1.06 K/uL (0.90-2.90); Lymphocytes Percent Auto 22.2 % (20-44); Mean Corpuscular HGB Conc 33 gm/dL (32-36); Mean Corpuscular Hemoglobin 41 pg (26-34); Mean Corpuscular Volume 125 fL (80-100); Monocytes Percent Auto 5.2 % (0.0-11.0); Neutrophils Absolute Auto 3.34 K/uL (1.7-7.0); Neutrophils Percent Auto 69.9 % (42.0-72.0); Platelet Count* 412 K/uL (140-440); RDW Coefficient of Variation % 12.9 % (11.5-15.5); Red Blood Count 2.67 m/uL (4.00-5.20); White Blood Count* 4.78 K/uL (4.50-11.00)
[2023-11-09 13:08] LABS: Slide Review Reflex No
[2023-11-09 13:13] LABS: Albumin* 4.2 g/dL (3.3-5.0); Chloride* 100 mmol/L (96-114)
[2023-11-09 13:14] LABS: Potassium* 4.3 mmol/L (3.6-5.1); Sodium* 136 mmol/L (135-149)
[2023-11-09 13:16] LABS: Alkaline Phosphatase* 109 U/L (40-150); Anion Gap 6 mEq/L (7-15); Aspartate Amino Transferase* 28 U/L (12-35); Bilirubin Total* 0.3 mg/dL (0.1-1.5); Blood Urea Nitrogen* 24 mg/dL (7-30); Carbon Dioxide* 30 mmol/L (20-32); Estimated Glomerular Filt Rate 59 ml/min; Total Protein* 7.1 g/dL (6.0-8.3)
[2023-11-09 13:17] LABS: Alanine Aminotransferase* 14 U/L (4-35); Calcium* 8.9 mg/dL (8.4-10.6); Glucose* 134 mg/dL (60-115); Lactate Dehydrogenase* 220 U/L (120-246)
[2024-01-11 10:54] LABS: Basophils Percent Auto 1.2 % (0.0-3.0); Eosinophils Percent Auto 2.6 % (0.0-7.0); Hematocrit 33.7 % (33.0-51.0); Hemoglobin* 11.3 gm/dL (12.0-16.0); Immature Granulocytes Pct Auto 0.2 %; Lymphocytes Percent Auto 25.8 % (20-44); Mean Corpuscular HGB Conc 34 gm/dL (32-36); Mean Corpuscular Hemoglobin 41 pg (26-34); Mean Corpuscular Volume 123 fL (80-100); Monocytes Percent Auto 7.2 % (0.0-11.0); Platelet Count* 405 K/uL (140-440); RDW Coefficient of Variation % 12.7 % (11.5-15.5); Red Blood Count 2.74 m/uL (4.00-5.20); White Blood Count* 4.18 K/uL (4.50-11.00)
[2024-01-11 10:56] LABS: Slide Review Reflex No
[2024-01-11 11:09] LABS: Albumin* 4.2 g/dL (3.3-5.0); Chloride* 99 mmol/L (96-114); Potassium* 4.4 mmol/L (3.6-5.1); Sodium* 136 mmol/L (135-149)
[2024-01-11 11:11] LABS: Creatinine* 0.9 mg/dL (0.5-1.5); Estimated Glomerular Filt Rate 67 ml/min
[2024-01-11 11:12] LABS: Alanine Aminotransferase* 14 U/L (4-35); Alkaline Phosphatase* 112 U/L (40-150); Anion Gap 8 mEq/L (7-15); Aspartate Amino Transferase* 25 U/L (12-35); Blood Urea Nitrogen* 33 mg/dL (7-30); Carbon Dioxide* 29 mmol/L (20-32); Glucose* 97 mg/dL (60-115); Lactate Dehydrogenase* 196 U/L (120-246); Total Protein* 7.1 g/dL (6.0-8.3)
[2024-01-11 11:13] LABS: Bilirubin Total* < 0.1 mg/dL (0.1-1.5)
--- NOTE | 2024-01-16 14:49 | ONC.NURNOTE ---
Labs reviewed by Dr Jane and stable at current hydrea dose of 1000mg alt wiith 1500mg no dose changes next lab due 03/07 with provider appt call to patient with this information
== END 2024-01-30 23:59 | disposition home or self-care (01) ==
LOC: CCIC 10:30
PROVIDERS: PCP Physician Assistant Medical; Referring Provider Physician Assistant Medical; Visit Provider Internal Medicine Hematology & Oncology
DX: D47.3 Essential (hemorrhagic) thrombocythemia (principal)
CPT/HCPCS: 36415; 80053; 83615; 85025; 99214; G0463

== ENCOUNTER 2024-07-23 10:30 | Outpatient (RCR) | payer MEDICARE, SELFPAY ==
[2024-03-07 08:36] LABS: Basophils Percent Auto 1.2 % (0.0-3.0); Eosinophils Percent Auto 3.6 % (0.0-7.0); Hematocrit 36.9 % (33.0-51.0); Hemoglobin* 12.4 gm/dL (12.0-16.0); Immature Granulocytes Pct Auto 0.2 %; Lymphocytes Percent Auto 31.8 % (20-44); Mean Corpuscular HGB Conc 34 gm/dL (32-36); Mean Corpuscular Hemoglobin 40 pg (26-34); Mean Corpuscular Volume 119 fL (80-100); Monocytes Percent Auto 6.6 % (0.0-11.0); Neutrophils Percent Auto 56.6 % (42.0-72.0); Platelet Count* 350 K/uL (140-440); RDW Coefficient of Variation % 12.6 % (11.5-15.5); White Blood Count* 4.12 K/uL (4.50-11.00)
[2024-03-07 08:40] LABS: Slide Review Reflex No
[2024-03-07 08:51] LABS: Albumin* 4.2 g/dL (3.3-5.0); Chloride* 99 mmol/L (96-114)
[2024-03-07 08:52] LABS: Potassium* 3.8 mmol/L (3.6-5.1); Sodium* 134 mmol/L (135-149)
[2024-03-07 08:54] LABS: Alkaline Phosphatase* 114 U/L (40-150); Anion Gap 8 mEq/L (7-15); Aspartate Amino Transferase* 27 U/L (12-35); Bilirubin Total* 0.1 mg/dL (0.1-1.5); Carbon Dioxide* 27 mmol/L (20-32); Creatinine* 0.9 mg/dL (0.5-1.5); Estimated Glomerular Filt Rate 67 ml/min; Total Protein* 7.2 g/dL (6.0-8.3)
[2024-03-07 08:55] LABS: Alanine Aminotransferase* 14 U/L (4-35); Blood Urea Nitrogen* 24 mg/dL (7-30); Calcium* 9.1 mg/dL (8.4-10.6); Glucose* 109 mg/dL (60-115); Lactate Dehydrogenase* 205 U/L (120-246)
[2024-05-16 10:56] LABS: Basophils Absolute Auto 0.04 K/uL (0.00-0.30); Basophils Percent Auto 0.8 % (0.0-3.0); Eosinophils Absolute Auto 0.19 K/uL (0.00-0.50); Eosinophils Percent Auto 3.9 % (0.0-7.0); Hematocrit 33.7 % (33.0-51.0); Hemoglobin* 11.4 gm/dL (12.0-16.0); Immature Granulocytes Abs Auto 0.01 K/uL (0.00-0.30); Immature Granulocytes Pct Auto 0.2 %; Lymphocytes Percent Auto 18.4 % (20-44); Mean Corpuscular HGB Conc 34 gm/dL (32-36); Mean Corpuscular Hemoglobin 42 pg (26-34); Mean Corpuscular Volume 123 fL (80-100); Monocytes Percent Auto 7.8 % (0.0-11.0); Neutrophils Absolute Auto 3.34 K/uL (1.7-7.0); Neutrophils Percent Auto 68.9 % (42.0-72.0); Platelet Count* 513 K/uL (140-440); RDW Coefficient of Variation % 14.1 % (11.5-15.5); Red Blood Count 2.74 m/uL (4.00-5.20); White Blood Count* 4.85 K/uL (4.50-11.00)
[2024-05-16 10:58] LABS: Slide Review Reflex No
[2024-05-16 11:13] LABS: Albumin* 4.1 g/dL (3.3-5.0); Chloride* 101 mmol/L (96-114); Sodium* 139 mmol/L (135-149)
[2024-05-16 11:15] LABS: Bilirubin Total* 0.2 mg/dL (0.1-1.5); Creatinine* 0.9 mg/dL (0.5-1.5); Est. Creatinine Clearance* 42.62; Estimated Glomerular Filt Rate 67 ml/min
[2024-05-16 11:16] LABS: Alanine Aminotransferase* 16 U/L (4-35); Alkaline Phosphatase* 88 U/L (40-150); Anion Gap 12 mEq/L (7-15); Aspartate Amino Transferase* 24 U/L (12-35); Blood Urea Nitrogen* 25 mg/dL (7-30); Calcium* 8.6 mg/dL (8.4-10.6); Carbon Dioxide* 26 mmol/L (20-32); Glucose* 120 mg/dL (60-115); Total Protein* 6.7 g/dL (6.0-8.3)
[2024-05-30 11:10] LABS: Basophils Percent Auto 0.7 % (0.0-3.0); Eosinophils Percent Auto 3.6 % (0.0-7.0); Hematocrit 32.9 % (33.0-51.0); Hemoglobin* 11.1 gm/dL (12.0-16.0); Immature Granulocytes Pct Auto 0.2 %; Lymphocytes Percent Auto 27.6 % (20-44); Mean Corpuscular HGB Conc 34 gm/dL (32-36); Mean Corpuscular Hemoglobin 41 pg (26-34); Mean Corpuscular Volume 122 fL (80-100); Monocytes Percent Auto 7.5 % (0.0-11.0); Neutrophils Percent Auto 60.4 % (42.0-72.0); Platelet Count* 313 K/uL (140-440); RDW Coefficient of Variation % 13.5 % (11.5-15.5); Red Blood Count 2.69 m/uL (4.00-5.20); White Blood Count* 4.16 K/uL (4.50-11.00)
[2024-05-30 11:12] LABS: Slide Review Reflex No
[2024-07-09 13:34] LABS: Basophils Absolute Auto 0.05 K/uL (0.00-0.30); Basophils Percent Auto 1.1 % (0.0-3.0); Eosinophils Absolute Auto 0.12 K/uL (0.00-0.50); Eosinophils Percent Auto 2.6 % (0.0-7.0); Hematocrit 33.6 % (33.0-51.0); Hemoglobin* 11.3 gm/dL (12.0-16.0); Immature Granulocytes Abs Auto 0.01 K/uL (0.00-0.30); Immature Granulocytes Pct Auto 0.2 %; Lymphocytes Absolute Auto 1.14 K/uL (0.90-2.90); Lymphocytes Percent Auto 24.9 % (20-44); Mean Corpuscular HGB Conc 34 gm/dL (32-36); Mean Corpuscular Hemoglobin 42 pg (26-34); Mean Corpuscular Volume 125 fL (80-100); Monocytes Percent Auto 6.6 % (0.0-11.0); Neutrophils Absolute Auto 2.95 K/uL (1.7-7.0); Neutrophils Percent Auto 64.6 % (42.0-72.0); Platelet Count* 464 K/uL (140-440); RDW Coefficient of Variation % 12.9 % (11.5-15.5); Red Blood Count 2.68 m/uL (4.00-5.20); White Blood Count* 4.57 K/uL (4.50-11.00)
[2024-07-09 13:42] LABS: Slide Review Reflex No
[2024-07-09 13:47] LABS: Albumin* 4.1 g/dL (3.3-5.0); Chloride* 98 mmol/L (96-114); Potassium* 3.8 mmol/L (3.6-5.1); Sodium* 135 mmol/L (135-149)
[2024-07-09 13:49] LABS: Alanine Aminotransferase* 22 U/L (4-35); Anion Gap 8 mEq/L (7-15); Aspartate Amino Transferase* 30 U/L (12-35); Blood Urea Nitrogen* 23 mg/dL (7-30); Carbon Dioxide* 29 mmol/L (20-32); Creatinine* 0.9 mg/dL (0.5-1.5); Est. Creatinine Clearance* 42.62; Estimated Glomerular Filt Rate 67 ml/min
[2024-07-09 13:50] LABS: Alkaline Phosphatase* 99 U/L (40-150); Bilirubin Total* 0.3 mg/dL (0.1-1.5); Glucose* 125 mg/dL (60-115); Lactate Dehydrogenase* 216 U/L (120-246)
[2024-07-23 10:40] LABS: Basophils Percent Auto 0.7 % (0.0-3.0); Eosinophils Percent Auto 2.7 % (0.0-7.0); Hematocrit 33.2 % (33.0-51.0); Hemoglobin* 11.1 gm/dL (12.0-16.0); Immature Granulocytes Pct Auto 0.2 %; Lymphocytes Percent Auto 26.4 % (20-44); Mean Corpuscular HGB Conc 33 gm/dL (32-36); Mean Corpuscular Hemoglobin 41 pg (26-34); Mean Corpuscular Volume 123 fL (80-100); Monocytes Percent Auto 8.4 % (0.0-11.0); Neutrophils Percent Auto 61.6 % (42.0-72.0); Platelet Count* 383 K/uL (140-440); RDW Coefficient of Variation % 12.7 % (11.5-15.5); Red Blood Count 2.69 m/uL (4.00-5.20); White Blood Count* 4.39 K/uL (4.50-11.00)
[2024-07-23 10:44] LABS: Slide Review Reflex No
[2024-07-23 10:52] LABS: Chloride* 101 mmol/L (96-114); Sodium* 136 mmol/L (135-149)
[2024-07-23 10:53] LABS: Potassium* 4.3 mmol/L (3.6-5.1)
[2024-07-23 10:55] LABS: Alanine Aminotransferase* 20 U/L (4-35); Alkaline Phosphatase* 108 U/L (40-150); Anion Gap 10 mEq/L (7-15); Aspartate Amino Transferase* 34 U/L (12-35); Bilirubin Total* 0.2 mg/dL (0.1-1.5); Blood Urea Nitrogen* 25 mg/dL (7-30); Carbon Dioxide* 25 mmol/L (20-32); Creatinine* 0.9 mg/dL (0.5-1.5); Est. Creatinine Clearance* 39.04; Estimated Glomerular Filt Rate 67 ml/min; Total Protein* 6.9 g/dL (6.0-8.3)
[2024-07-23 10:56] LABS: Calcium* 8.6 mg/dL (8.4-10.6); Glucose* 92 mg/dL (60-115)
== END 2024-09-03 23:59 | disposition home or self-care (01) ==
LOC: CCIC 10:30
PROVIDERS: Internal Medicine Hematology & Oncology; PCP Physician Assistant Medical; Referring Provider Physician Assistant Medical; Visit Provider Physician Assistant
DX: D47.3 Essential (hemorrhagic) thrombocythemia (principal); D64.9 Anemia, unspecified; Z79.82 Long term (current) use of aspirin
CPT/HCPCS: 36415; 80053; 83615; 85025; 99213; 99214; G0463

== ENCOUNTER 2025-01-21 11:00 | Outpatient (RCR) | payer MEDICARE, SELFPAY ==
[2024-09-18 10:49] LABS: Hematocrit* 33.4 % (33.0-51.0); Hemoglobin* 11.2 gm/dL (12.0-16.0); Immature Granulocytes Abs Auto 0.01 K/uL (0.00-0.30); Immature Granulocytes Pct Auto 0.2 %; Mean Corpuscular HGB Conc 34 gm/dL (32-36); Mean Corpuscular Hemoglobin 41 pg (26-34); Mean Corpuscular Volume 122 fL (80-100); RDW Coefficient of Variation % 12.6 % (11.5-15.5); Red Blood Count* 2.73 m/uL (4.00-5.20); White Blood Count* 5.57 K/uL (4.50-11.00)
--- NOTE | 2024-09-18 10:53 | ONC.NURNOTE ---
Addendum entered by Rosemary Sigala RN 09/18/24 14:02: labs reviewed with Dr Jane following plan called to Maryuri: increase hydrea from 1000/1500 mg QOD to 1500 mg 5 days/wk and 1000 mg 2 days/wk rcheck CBC on 10/22 (surg planned on 10/23) platelet count will determine whether or not hydrea will be held prior to surgery Maryuri will not take her hydrea on 10/22 until instructed further by Dr Jane Maryuri has a preop on 10/15 and will call this technical proposal writer if labs are done on that day at [facility] Original Note: Maryuri is here for routine lab draw. She is scheduled for knee replacement October 23 here at the [facility]. Maryuri questions if any modification is needed in her hydrea schedule at the time of surgery?
[2024-09-18 10:58] LABS: Lymphocytes Absolute Auto 1.10 K/uL (0.90-2.90); Slide Review Reflex No
[2024-09-18 11:12] LABS: Albumin* 4.1 g/dL (3.3-5.0); Chloride* 97 mmol/L (96-114); Sodium* 133 mmol/L (135-149)
[2024-09-18 11:13] LABS: Potassium* 4.1 mmol/L (3.6-5.1)
[2024-09-18 11:15] LABS: Alanine Aminotransferase* 21 U/L (4-35); Alkaline Phosphatase* 109 U/L (40-150); Anion Gap 10 mEq/L (7-15); Aspartate Amino Transferase* 34 U/L (12-35); Bilirubin Total* 0.2 mg/dL (0.1-1.5); Blood Urea Nitrogen* 29 mg/dL (7-30); Carbon Dioxide* 26 mmol/L (20-32); Creatinine* 1.0 mg/dL (0.5-1.5); Estimated Glomerular Filt Rate 59 ml/min; Total Protein* 7.4 g/dL (6.0-8.3)
[2024-09-18 11:16] LABS: Calcium* 8.9 mg/dL (8.4-10.6); Glucose* 115 mg/dL (60-115)
[2024-10-22 11:25] LABS: Hematocrit* 34.1 % (33.0-51.0); Hemoglobin* 11.7 gm/dL (12.0-16.0); Immature Granulocytes Abs Auto 0.00 K/uL (0.00-0.30); Immature Granulocytes Pct Auto 0.0 %; Mean Corpuscular HGB Conc 34 gm/dL (32-36); Mean Corpuscular Hemoglobin 42 pg (26-34); Mean Corpuscular Volume 121 fL (80-100); RDW Coefficient of Variation % 13.1 % (11.5-15.5); Red Blood Count* 2.82 m/uL (4.00-5.20); White Blood Count* 3.92 K/uL (4.50-11.00)
[2024-10-22 11:28] LABS: Lymphocytes Absolute Auto 1.00 K/uL (0.90-2.90); Slide Review Reflex No
--- NOTE | 2024-10-23 13:18 | ONC.NURNOTE ---
labs reviewed by Dr Jane anc called to Maryuri to continue on current dose of hydrea- 1500mg 5d/wk and 1000 mg 2d/wk next appts previously scheduled for Aug with lab and Dr Jane appt
[2024-11-19 09:34] LABS: Hematocrit* 36.3 % (33.0-51.0); Hemoglobin* 12.0 gm/dL (12.0-16.0); Immature Granulocytes Pct Auto 0.2 %; Lymphocytes Absolute Auto 1.10 K/uL (0.90-2.90); Mean Corpuscular HGB Conc 33 gm/dL (32-36); Mean Corpuscular Hemoglobin 41 pg (26-34); Mean Corpuscular Volume 124 fL (80-100); RDW Coefficient of Variation % 13.8 % (11.5-15.5); Red Blood Count* 2.94 m/uL (4.00-5.20); White Blood Count* 4.42 K/uL (4.50-11.00)
[2024-11-19 09:37] LABS: Immature Granulocytes Abs Auto 0.00 K/uL (0.00-0.30)
[2024-11-19 09:38] LABS: Slide Review Reflex No
[2024-11-19 09:59] LABS: Albumin* 4.2 g/dL (3.3-5.0); Chloride* 100 mmol/L (96-114); Potassium* 4.3 mmol/L (3.6-5.1); Sodium* 136 mmol/L (135-149)
[2024-11-19 10:02] LABS: Alanine Aminotransferase* 19 U/L (4-35); Alkaline Phosphatase* 106 U/L (40-150); Anion Gap 6 mEq/L (7-15); Aspartate Amino Transferase* 33 U/L (12-35); Bilirubin Total* 0.2 mg/dL (0.1-1.5); Blood Urea Nitrogen* 27 mg/dL (7-30); Carbon Dioxide* 30 mmol/L (20-32); Creatinine* 1.0 mg/dL (0.5-1.5); Estimated Glomerular Filt Rate 59 ml/min; Total Protein* 7.5 g/dL (6.0-8.3)
[2024-11-19 10:03] LABS: Calcium* 9.3 mg/dL (8.4-10.6); Glucose* 131 mg/dL (60-115)
[2025-01-21 11:14] LABS: Hematocrit* 33.3 % (33.0-51.0); Hemoglobin* 11.3 gm/dL (12.0-16.0); Immature Granulocytes Pct Auto 0.5 %; Mean Corpuscular HGB Conc 34 gm/dL (32-36); Mean Corpuscular Hemoglobin 42 pg (26-34); Mean Corpuscular Volume 123 fL (80-100); RDW Coefficient of Variation % 13.0 % (11.5-15.5); Red Blood Count* 2.70 m/uL (4.00-5.20); White Blood Count* 3.74 K/uL (4.50-11.00)
[2025-01-21 11:28] LABS: Albumin* 4.1 g/dL (3.3-5.0); Chloride* 97 mmol/L (96-114); Immature Granulocytes Abs Auto 0.00 K/uL (0.00-0.30); Lymphocytes Absolute Auto 0.90 K/uL (0.90-2.90); Slide Review Reflex No; Sodium* 131 mmol/L (135-149)
[2025-01-21 11:29] LABS: Potassium* 4.3 mmol/L (3.6-5.1)
[2025-01-21 11:31] LABS: Alanine Aminotransferase* 18 U/L (4-35); Anion Gap 6 mEq/L (7-15); Aspartate Amino Transferase* 32 U/L (12-35); Blood Urea Nitrogen* 21 mg/dL (7-30); Carbon Dioxide* 28 mmol/L (20-32); Creatinine* 0.9 mg/dL (0.5-1.5); Est. Creatinine Clearance* 38.44; Estimated Glomerular Filt Rate 67 ml/min; Total Protein* 7.5 g/dL (6.0-8.3)
[2025-01-21 11:32] LABS: Alkaline Phosphatase* 125 U/L (40-150); Bilirubin Total* 0.2 mg/dL (0.1-1.5); Calcium* 9.1 mg/dL (8.4-10.6); Glucose* 103 mg/dL (60-115)
== END 2025-03-17 23:59 | disposition home or self-care (01) ==
LOC: CCIC 11:00
PROVIDERS: Clinical Nurse Specialist; Physician Assistant; PCP Physician Assistant Medical; Referring Provider Physician Assistant Medical; Visit Provider Internal Medicine Hematology & Oncology
DX: D47.3 Essential (hemorrhagic) thrombocythemia (principal)
CPT/HCPCS: 36415; 80053; 83615; 85025; 99214; G0463